=== PATIENT | female | born 1955 | race Caucasian/White ===

== ENCOUNTER 2018-09-02 07:48 | Observation (INO) | payer MEDICARE, OTHER ==
[2018-09-02] MEDS ORDERED: BABY ASPIRIN 81 MG CHEW PO ONE (08:10)
[2018-09-02] MEDS ORDERED: BABY ASPIRIN 81 MG CHEW ONE (08:13)
--- NOTE | 2018-09-02 08:14 | ERPHSYRPT ---
- History of Present Illness Time Seen by Provider: 09/02/18 08:11 Historian: patient Patient Subjective Stated Complaint: Pt states "I had a horrible migraine a couple of days ago and then I just felt terrible. Last night I started to have chest pain on the right side of my chest and it hurts to breathe, it hurts to move." Triage Nursing Assessment: Pt alert and oriented X 3, skin pwd. Pt ambulates with a slow hunched over gait. PT able to speak in clear full sentences. Pt winces every so often when she moves or breathes. Physician History: mild to mod off and on right chest pain tightness for one day, gone now, no injury,no hx OR Aspirin Treatment Today: provided by ED Allergies/Adverse Reactions: clonazepam Adverse Reaction (Mild, Verified 09/02/18 08:03) altered loc divalproex sodium [From Depakote] Adverse Reaction (Mild, Verified 09/02/18 08: 03) hair loss tizanidine Adverse Reaction (Mild, Verified 09/02/18 08:03) altered loc trazodone Adverse Reaction (Mild, Verified 09/02/18 08:03) altered loc Home Medications: Sumatriptan Succ/Naproxen Sod [Treximet 85-500 mg Tablet] 1 each PO DAILY PRN [History] Hx Tetanus, Diphtheria Vaccination/Date Given: Yes Hx Influenza Vaccination/Date Given: No Hx Pneumococcal Vaccination/Date Given: No Immunizations Up to Date: Yes - Review of Systems Constitutional: No Fever Eyes: No Eye Redness Ears, Nose, & Throat: No Nose Congestion Respiratory: Cough, Dyspnea Cardiac: Chest Pain Abdominal/Gastrointestinal: Nausea, No Abdominal Pain, No Vomiting Genitourinary Symptoms: No Dysuria Musculoskeletal: No Back Pain Skin: No Rash Neurological: No Dizziness - Past Medical History Pertinent Past Medical History: Yes Neurological History: Migraines ENT History: No Pertinent History Cardiac History: Other Respiratory History: Asthma Endocrine Medical History: No Pertinent History Musculoskeletal History: Arthritis GI Medical History: Other History: No Pertinent History Psycho-Social History: No Pertinent History Female Reproductive Disorders: No Pertinent History Other Medical History: heart murmer. rheumatic fever - Past Surgical History Past Surgical History: Yes Other Surgical History: tonsils. adnoids - Social History Smoking Status: Never smoker Exposure to second hand smoke: No Drug Use: none Patient Lives Alone: No - Female History Hx Now: No - Nursing Vital Signs Nursing Vital Signs: Initial Vital Signs Temperature 99.0 F 09/02/18 07:53 Pulse Rate 100 H 09/02/18 07:53 Respiratory Rate 22 09/02/18 07:53 Blood Pressure 130/75 09/02/18 07:53 O2 Sat by Pulse Oximetry 99 09/02/18 07:53 Pain Scale Pain Intensity 5 - Physical Exam General Appearance: no apparent distress Eye Exam: eyes nml inspection Ears, Nose, Throat Exam: moist mucous membranes Neck Exam: normal inspection Respiratory Exam: normal breath sounds Cardiovascular Exam: regular rate/rhythm Gastrointestinal/Abdomen Exam: soft, No tenderness Extremity Exam: normal inspection Neurologic Exam: alert, oriented x 3, cooperative Skin Exam: normal color, warm, dry SpO2 Interpretation: normal SpO2: 99 Oxygen Delivery: Room Air - Course Nursing assessment & vital signs reviewed: Yes EKG Interpreted by Me: Other (nsr 97 no stemi) - Radiology Exams Chest X-ray Interpretation: Discussed w/ radiologist, Infiltrates Ordered Tests: Active Orders 24 hr Category Date Time Status EKG-ER Only STAT Care 09/02/18 08:10 Active IV Insertion STAT Care 09/02/18 08:10 Active CHEST 1 VIEW (PORTABLE) Stat Exams 09/02/18 08:10 Completed BLOOD CULTURE Stat Lab 09/02/18 Ordered CBC W DIFF Stat Lab 09/02/18 08:18 Completed CMP Stat Lab 09/02/18 08:18 Completed D-DIMER QUANTITATION Stat Lab 09/02/18 08:18 Completed PROTIME WITH INR Stat Lab 09/02/18 08:18 Completed TROPONIN Q3H Lab 09/02/18 08:19 Completed TROPONIN Q3H Lab 09/02/18 11:15 Ordered TROPONIN Q3H Lab 09/02/18 14:15 Ordered TROPONIN Q3H Lab 09/02/18 17:15 Ordered TROPONIN Q3H Lab 09/02/18 20:15 Ordered Transfer Order Routine Transfer 09/02/18 Ordered Medication Summary Generic Name Dose Route Start Last Admin Trade Name Freq PRN Reason Stop Dose Admin Levofloxacin/Dextrose 750 mg in 150 mls @ 100 mls/hr 09/02/18 10:08 09/02/18 10:15 Levofloxacin 750mg/150ml D5w IV 09/02/18 11:37 150 mls/hr STAT STA 150 mls/hr Administration Discontinued Medications Generic Name Dose Route Start Last Admin Trade Name Patricia PRN Reason Stop Dose Admin Aspirin 324 mg 09/02/18 08:10 09/02/18 08:14 Baby Aspirin 81 Mg Chew PO 09/02/18 08:11 324 mg STAT ONE Administration Aspirin Confirm 09/02/18 08:13 Baby Aspirin 81 Mg Chew Administered 09/02/18 08:14 Dose 324 mg .ROUTE .STK-MED ONE Levofloxacin/Dextrose Confirm 09/02/18 10:14 Levofloxacin 750mg/150ml D5w Administered 09/02/18 10:15 Dose 750 mg in 150 mls @ ud IV .STK-MED ONE Lab/Rad Data: Laboratory Result Diagrams 09/02/18 08:18 09/02/18 08:18 Laboratory Results 09/02/18 09/02/18 09/02/18 Range/Units 08:19 08:18 08:18 WBC (4.0-10.5) K/mm3 RBC (4.1-5.4) M/mm3 Hgb (12.0-16.0) gm/dl Hct (35-47) % MCV (78-100) fl MCH (26-32) pg MCHC (32-36) g/dl RDW (11.5-14.0) % Plt Count (150-450) K/mm3 MPV (6-9.5) fl Gran % (36.0-66.0) % Eos # (Auto) (0-0.5) Absolute Lymphs (auto) (1.0-4.6) Absolute Monos (auto) (0.0-1.3) Lymphocytes % (24.0-44.0) % Monocytes % (0.0-12.0) % Eosinophils % (0.00-5.0) % Basophils % (0.0-0.4) % Absolute Granulocytes (1.4-6.9) Basophils # (0-0.4) PT 14.1 H (9.95-12.35) SECONDS INR 1.21 (0.8-3.0) D-Dimer 355 (215-500) ng/mL Sodium 138 (137-145) mmol/L Potassium 4.7 (3.5-5.1) mmol/L Chloride 101 (98-107) mmol/L Carbon Dioxide 26 (22-30) mmol/L Anion Gap 15.5 H (5-15) MEQ/L BUN 22 H (7-17) mg/dL Creatinine 0.65 (0.52-1.04) mg/dL Estimated GFR > 60.0 ML/MIN Glucose 143 H (74-106) mg/dL Calcium 10.1 (8.4-10.2) mg/dL Total Bilirubin 1.20 (0.2-1.3) mg/dL AST 29 (14-36) U/L ALT 21 (0-35) U/L Alkaline Phosphatase 77 (38-126) U/L Troponin I < 0.012 (0.000-0.034) ng/mL Serum Total Protein 8.1 (6.3-8.2) g/dL Albumin 4.6 (3.5-5.0) g/dL 18 Range/Units 08:18 WBC 19.9 H (4.0-10.5) K/mm3 RBC 5.49 H (4.1-5.4) M/mm3 Hgb 13.6 (12.0-16.0) gm/dl Hct 40.9 (35-47) % MCV 74.5 L (78-100) fl MCH 24.7 L (26-32) pg MCHC 33.3 (32-36) g/dl RDW 16.7 H (11.5-14.0) % Plt Count 253 (150-450) K/mm3 MPV 9.9 H (6-9.5) fl Gran % 88.1 H (36.0-66.0) % Eos # (Auto) 0 (0-0.5) Absolute Lymphs (auto) 0.95 L (1.0-4.6) Absolute Monos (auto) 1.39 H (0.0-1.3) Lymphocytes % 4.8 L (24.0-44.0) % Monocytes % 7.0 (0.0-12.0) % Eosinophils % 0.0 (0.00-5.0) % Basophils % 0.1 (0.0-0.4) % Absolute Granulocytes 17.55 H (1.4-6.9) Basophils # 0.02 (0-0.4) PT (9.95-12.35) SECONDS INR (0.8-3.0) D-Dimer (215-500) ng/mL Sodium (137-145) mmol/L Potassium (3.5-5.1) mmol/L Chloride (98-107) mmol/L Carbon Dioxide (22-30) mmol/L Anion Gap (5-15) MEQ/L BUN (7-17) mg/dL Creatinine (0.52-1.04) mg/dL Estimated GFR ML/MIN Glucose (74-106) mg/dL Calcium (8.4-10.2) mg/dL Total Bilirubin (0.2-1.3) mg/dL AST (14-36) U/L ALT (0-35) U/L Alkaline Phosphatase (38-126) U/L Troponin I (0.000-0.034) ng/mL Serum Total Protein (6.3-8.2) g/dL Albumin (3.5-5.0) g/dL - Progress Progress: unchanged Air Movement: good Progress Note: 09/02/18 10:28 Dr Schneider asked to admit pt to Dr Calhoun Blood Culture(s) Obtained: Yes Antibiotics given: Yes Discussed with : Lj Will see patient in: hospital (observation) Counseled pt/family regarding: lab results, diagnosis, rad results - Departure Time of Disposition: 10:29 Departure Disposition: Observation Clinical Impression: Pneumonia Qualifiers: Pneumonia type: due to unspecified organism Laterality: right Lung location: unspecified part of lung Qualified Code(s): J18.9 - Pneumonia, unspecified organism Condition: Stable Critical Care Time: No Referrals: PONCHO SCHNEIDER [Primary Care Provider] -
[2018-09-02 08:23] LABS: BASOPHIL % 0.1 % (0.0-0.4); Basophil (Absolute #) 0.02 (0-0.4); Eosinophil (Absolute #) 0 (0-0.5); Granulocyte Absolute (ANC) 17.55 (1.4-6.9); Granulocytes % 88.1 % (36.0-66.0); Hematocrit 40.9 % (35-47); Hemoglobin 13.6 gm/dl (12.0-16.0); Lymphocyte (Absolute #) 0.95 (1.0-4.6); Lymphocytes % 4.8 % (24.0-44.0); Mean Cell Volume 74.5 fl (78-100); Mean Corpuscular Hgb Concent. 33.3 g/dl (32-36); Mean Platelet Volume 9.9 fl (6-9.5); Monocyte (Absolute #) 1.39 (0.0-1.3); Platelet Count 253 K/mm3 (150-450); Red Blood Count 5.49 M/mm3 (4.1-5.4); Red Cell Distribution Width 16.7 % (11.5-14.0); White Blood Count 19.9 K/mm3 (4.0-10.5)
[2018-09-02 08:26] LABS: Mean Corpuscular Hemoglobin 24.7 pg (26-32)
[2018-09-02 08:38] LABS: INR 1.21 (0.8-3.0)
[2018-09-02 08:47] LABS: ALBUMIN 4.6 g/dL (3.5-5.0); ALKALINE PHOSPHATASE 77 U/L (38-126); ANION GAP 15.5 MEQ/L (5-15); BLOOD UREA NITROGEN 22 mg/dL (7-17); CHLORIDE 101 mmol/L (98-107); Calcium 10.1 mg/dL (8.4-10.2); Carbon Dioxide 26 mmol/L (22-30); Creatinine 1 0.65 mg/dL (0.52-1.04); Glucose 143 mg/dL (74-106); Potassium 4.7 mmol/L (3.5-5.1); SGOT/AST 29 U/L (14-36); SGPT/ALT 21 U/L (0-35); SODIUM 138 mmol/L (137-145); Total Protein 8.1 g/dL (6.3-8.2)
[2018-09-02] MEDS ORDERED: LEVOFLOXACIN 750MG/150ML D5W 750 MG/150 ML BAG IV STA (10:08)
--- NOTE | 2018-09-02 10:11 | XRAY ---
Indication: Chest pain. Comparison: None Portable chest hyperinflated with subtle patchy infiltrate in the right upper and right lower lung without consolidation or large effusion. Remaining heart and left lung normal. Bony thorax intact.
[2018-09-02] MEDS ORDERED: LEVOFLOXACIN 750MG/150ML D5W 750 MG/150 ML BAG IV ONE (10:14)
[2018-09-02] MEDS ORDERED: DUONEB 0.5-3 MG/3 ml Neb IH PRN (10:40)
[2018-09-02] MEDS ORDERED: TYLENOL 325 MG PO PRN (10:40)
[2018-09-02] MEDS: Sodium Chloride 0.9% 1000 ML 1,000 ML IV SCH ×2 (11:46→22:53)
[2018-09-02] MEDS ORDERED: NAPROXEN SOD PO PRN (13:35)
[2018-09-02] MEDS ORDERED: SUMATRIPTAN SUCC PO PRN (13:35)
[2018-09-02] MEDS ORDERED: MEDICATION INTERVENTION MC SCH (13:45)
[2018-09-02] MEDS ORDERED: ENOXAPARIN SODIUM SQ ONE (19:15)
[2018-09-03 06:03] LABS: BASOPHIL % 0.2 % (0.0-0.4); Basophil (Absolute #) 0.02 (0-0.4); Eosinophil % 1.3 % (0.00-5.0); Eosinophil (Absolute #) 0.11 (0-0.5); Granulocyte Absolute (ANC) 5.31 (1.4-6.9); Granulocytes % 65.1 % (36.0-66.0); Hematocrit 32.5 % (35-47); Hemoglobin 10.4 gm/dl (12.0-16.0); Lymphocyte (Absolute #) 2.02 (1.0-4.6); Lymphocytes % 24.8 % (24.0-44.0); Mean Cell Volume 76.5 fl (78-100); Mean Platelet Volume 10.2 fl (6-9.5); Monocytes % 8.6 % (0.0-12.0); Platelet Count 201 K/mm3 (150-450); Red Blood Count 4.25 M/mm3 (4.1-5.4); Red Cell Distribution Width 16.2 % (11.5-14.0); White Blood Count 8.2 K/mm3 (4.0-10.5)
[2018-09-03 06:06] LABS: Mean Corpuscular Hemoglobin 24.4 pg (26-32)
[2018-09-03 06:58] VITALS: BP 113/55; PULSE 73
[2018-09-03 07:05] VITALS: O2SAT 98
[2018-09-03] MEDS: Sodium Chloride 0.9% 1000 ML 1,000 ML IV SCH (07:46)
--- NOTE | 2018-09-03 08:55 | PCM.SSS ---
History of Present Illness - Chief Complaint Chief Complaint: pneumonia History of Present Illness: is a 63 year old female pt of Dr. Poncho Schneider who was admitted through the ER last night with RUL and RLL pneumonia. She had a migraine 2d ago and was not tolerating po well; she had a pain in her R ribs radiating up toward R axilla so she came to ER. She had no cough; had an episode of PNA 26 years ago with no cough. No fever. She is feeling much better today. Her WBC were 19.9 in the ER; this morning down to 8.2. The pain in her side is still present but much improved. - Review of Systems Cardiac: Chest Pain Abdominal/Gastrointestinal: Appetite Changes Neurological: Headache Psychological: No Anxiety, No Depression, No Suicidal Ideations All Other Systems: Reviewed and Negative Medications & Allergies Home Medications: Home Medication List Sumatriptan Succ/Naproxen Sod [Treximet 85-500 mg Tablet] 1 each PO DAILY PRN [History Confirmed 09/02/18] Levofloxacin [Levaquin] 500 mg PO DAILY #9 tablet 09/03/18 [Rx] Allergies/Adverse Reactions: Allergies Allergy/AdvReac Type Severity Reaction Status Date / Time clonazepam AdvReac Mild altered loc Verified 09/02/18 08:03 divalproex sodium AdvReac Mild hair loss Verified 09/02/18 08:03 [From Depakote] tizanidine AdvReac Mild altered loc Verified 09/02/18 08:03 trazodone AdvReac Mild altered loc Verified 09/02/18 08:03 - Past Medical History Past Medical History: Yes Neurological History: Migraines ENT History: No Pertinent History Cardiac History: Other Respiratory History: Asthma, Pneumonia Endocrine Medical History: No Pertinent History Musculoskelatal History: Arthritis GI Medical History: Other History: No Pertinent History Pyscho-Social History: No Pertinent History Reproductive Disorders: No Pertinent History Comment: heart murmer. anemia. rheumatic fever - Female History Are you now?: No - Past Surgical History Past Surgical History: Yes Neuro Surgical History: No Pertinent History Cardiac History: No Pertinent History Respiratory Surgery: No Pertinent History GI Surgical History: No Pertinent History Genitourinary Surgical Hx: No Pertinent History Musculskeletal Surgical Hx: No Pertinent History Female Surgical History: No Pertinent History Other Surgical History: tonsils. adnoids - Social History Smoking Status: Never smoker Exposure to second hand smoke: No Alcohol: None Drug Use: none - Physical Exam Vital Signs: Vital Signs - 24 hr Temp Pulse Resp BP Pulse Ox 09/03/18 07:04 98 09/03/18 06:57 97.7 F 73 20 113/55 99 09/03/18 05:57 18 09/03/18 04:00 97.6 F 69 18 101/53 96 09/03/18 02:00 16 09/03/18 00:17 97.8 F 79 16 107/51 98 09/02/18 22:00 18 09/02/18 19:56 81 18 94 L 09/02/18 19:50 98.5 F 76 16 97/53 98 09/02/18 15:44 98 F 89 20 109/53 97 09/02/18 11:40 96 H 16 98 09/02/18 10:53 20 09/02/18 10:40 98.4 F 92 H 20 112/56 98 09/02/18 10:30 99 09/02/18 10:00 79 23 112/61 97 09/02/18 09:06 99.0 F 89 20 108/57 97 General Appearance: no apparent distress, alert Neurologic Exam: oriented x 3, cooperative Eye Exam: eyes nml inspection Ears, Nose, Throat Exam: moist mucous membranes Neck Exam: normal inspection, non-tender, No lymphadenopathy Respiratory Exam: normal breath sounds, lungs clear, other (chest nttp on R), No crackles/rales, No rhonchi, No wheezing Cardiovascular Exam: regular rate/rhythm, normal heart sounds, No murmur Gastrointestinal/Abdomen Exam: soft, normal bowel sounds, No tenderness Extremity Exam: normal inspection, No pedal edema, No swelling Results - Labs Lab/Micro Results: Lab Results-Last 24 Hours 09/02/18 09/02/18 09/02/18 Range/Units 08:18 08:18 08:19 WBC (4.0-10.5) K/mm3 RBC (4.1-5.4) M/mm3 Hgb (12.0-16.0) gm/dl Hct (35-47) % MCV (78-100) fl MCH (26-32) pg MCHC (32-36) g/dl RDW (11.5-14.0) % Plt Count (150-450) K/mm3 MPV (6-9.5) fl Gran % (36.0-66.0) % Eos # (Auto) (0-0.5) Absolute Lymphs (auto) (1.0-4.6) Absolute Monos (auto) (0.0-1.3) Lymphocytes % (24.0-44.0) % Monocytes % (0.0-12.0) % Eosinophils % (0.00-5.0) % Basophils % (0.0-0.4) % Absolute Granulocytes (1.4-6.9) Basophils # (0-0.4) PT 14.1 H (9.95-12.35) SECONDS INR 1.21 (0.8-3.0) D-Dimer 355 (215-500) ng/mL Sodium 138 (137-145) mmol/L Potassium 4.7 (3.5-5.1) mmol/L Chloride 101 (98-107) mmol/L Carbon Dioxide 26 (22-30) mmol/L Anion Gap 15.5 H (5-15) MEQ/L BUN 22 H (7-17) mg/dL Creatinine 0.65 (0.52-1.04) mg/dL Estimated GFR > 60.0 ML/MIN Glucose 143 H (74-106) mg/dL Calcium 10.1 (8.4-10.2) mg/dL Total Bilirubin 1.20 (0.2-1.3) mg/dL AST 29 (14-36) U/L ALT 21 (0-35) U/L Alkaline Phosphatase 77 (38-126) U/L Troponin I < 0.012 (0.000-0.034) ng/mL Serum Total Protein 8.1 (6.3-8.2) g/dL Albumin 4.6 (3.5-5.0) g/dL 09/02/18 09/02/18 09/02/18 Range/Units 11:09 14:08 17:13 WBC (4.0-10.5) K/mm3 RBC (4.1-5.4) M/mm3 Hgb (12.0-16.0) gm/dl Hct (35-47) % MCV (78-100) fl MCH (26-32) pg MCHC (32-36) g/dl RDW (11.5-14.0) % Plt Count (150-450) K/mm3 MPV (6-9.5) fl Gran % (36.0-66.0) % Eos # (Auto) (0-0.5) Absolute Lymphs (auto) (1.0-4.6) Absolute Monos (auto) (0.0-1.3) Lymphocytes % (24.0-44.0) % Monocytes % (0.0-12.0) % Eosinophils % (0.00-5.0) % Basophils % (0.0-0.4) % Absolute Granulocytes (1.4-6.9) Basophils # (0-0.4) PT (9.95-12.35) SECONDS INR (0.8-3.0) D-Dimer (215-500) ng/mL Sodium (137-145) mmol/L Potassium (3.5-5.1) mmol/L Chloride (98-107) mmol/L Carbon Dioxide (22-30) mmol/L Anion Gap (5-15) MEQ/L BUN (7-17) mg/dL Creatinine (0.52-1.04) mg/dL Estimated GFR ML/MIN Glucose (74-106) mg/dL Calcium (8.4-10.2) mg/dL Total Bilirubin (0.2-1.3) mg/dL AST (14-36) U/L ALT (0-35) U/L Alkaline Phosphatase (38-126) U/L Troponin I < 0.012 < 0.012 < 0.012 (0.000-0.034) ng/mL Serum Total Protein (6.3-8.2) g/dL Albumin (3.5-5.0) g/dL 09/02/18 09/03/18 Range/Units 20:15 05:22 WBC 8.2 (4.0-10.5) K/mm3 RBC 4.25 (4.1-5.4) M/mm3 Hgb 10.4 L D (12.0-16.0) gm/dl Hct 32.5 L (35-47) % MCV 76.5 L (78-100) fl MCH 24.4 L (26-32) pg MCHC 32.0 D (32-36) g/dl RDW 16.2 H (11.5-14.0) % Plt Count 201 (150-450) K/mm3 MPV 10.2 H (6-9.5) fl Gran % 65.1 (36.0-66.0) % Eos # (Auto) 0.11 (0-0.5) Absolute Lymphs (auto) 2.02 (1.0-4.6) Absolute Monos (auto) 0.70 (0.0-1.3) Lymphocytes % 24.8 (24.0-44.0) % Monocytes % 8.6 (0.0-12.0) % Eosinophils % 1.3 (0.00-5.0) % Basophils % 0.2 (0.0-0.4) % Absolute Granulocytes 5.31 (1.4-6.9) Basophils # 0.02 (0-0.4) PT (9.95-12.35) SECONDS INR (0.8-3.0) D-Dimer (215-500) ng/mL Sodium (137-145) mmol/L Potassium (3.5-5.1) mmol/L Chloride (98-107) mmol/L Carbon Dioxide (22-30) mmol/L Anion Gap (5-15) MEQ/L BUN (7-17) mg/dL Creatinine (0.52-1.04) mg/dL Estimated GFR ML/MIN Glucose (74-106) mg/dL Calcium (8.4-10.2) mg/dL Total Bilirubin (0.2-1.3) mg/dL AST (14-36) U/L ALT (0-35) U/L Alkaline Phosphatase (38-126) U/L Troponin I < 0.012 (0.000-0.034) ng/mL Serum Total Protein (6.3-8.2) g/dL Albumin (3.5-5.0) g/dL Microbiology 09/02/18 11:09 Blood Culture - Preliminary Blood NO GROWTH TO DATE 09/02/18 08:00 Blood Culture - Preliminary Blood NO GROWTH TO DATE - Radiology Impressions Radiology Exams & Impressions: Radiology Procedures Category Date Time Status CHEST 1 VIEW (PORTABLE) Stat Exams 09/02/18 08:10 Completed - Other Procedures and Tests Respiratory Therapy 09/02/18 11:40 Respiratory Therapy Assessment ONCE Assessment/Plan (1) Pneumonia Current Visit: Yes Status: Acute Onset Date: ~09/02/18 Qualifiers: Pneumonia type: due to unspecified organism Laterality: right Lung location: unspecified part of lung Qualified Code(s): J18.9 - Pneumonia, unspecified organism Assessment & Plan: Much improved on IV levaquin. Will d/c to home on po levaquin. Discussed warning s/sx when to call DrGino/head to ER, including fever, increased pain, not feeling well. Code(s): J18.9 - PNEUMONIA, UNSPECIFIED ORGANISM (2) Chest pain Current Visit: Yes Status: Acute Onset Date: ~09/02/18 Qualifiers: Chest pain type: unspecified Qualified Code(s): R07.9 - Chest pain, unspecified Assessment & Plan: TN ruled out. Much improved (due to pna). Code(s): R07.9 - CHEST PAIN, UNSPECIFIED Hospital Summary - Hospital Course Hospital Course: is a 63 year old female pt of Dr. Poncho Schneider who was admitted through the ER last night with RUL and RLL pneumonia. She had a migraine 2d ago and was not tolerating po well; she had a pain in her R ribs radiating up toward R axilla so she came to ER. She had no cough; had an episode of PNA 26 years ago with no cough. No fever. She is feeling much better today. Troponins neg x 5. Her WBC were 19.9 in the ER; this morning down to 8.2. The pain in her side is still present but much improved. She will be discharged to home today on po levaquin, 500mg daily x 9 more days. She was warned to watch for musculoskeletal pain, particularly around the Achilles tendon, and stop the med and contact MD if present. - Vitals & Intake/Output Vital Signs: Vital Signs Temperature 97.7 F 09/03/18 06:57 Pulse Rate 73 09/03/18 06:57 Respiratory Rate 20 09/03/18 06:57 Blood Pressure 113/55 09/03/18 06:57 O2 Sat by Pulse Oximetry 98 09/03/18 07:04 Intake & Output: Intake & Output 08/31/18 09/01/18 09/02/18 09/03/18 11:59 11:59 11:59 11:59 Intake Total 2298 Output Total 950 Balance 1348 Weight 45.4 kg - Lab Result Diagrams: 09/03/18 05:22 09/02/18 08:18 Lab Results-Last 24 Hrs: Lab Results-Last 24 Hours 09/02/18 09/02/18 09/02/18 Range/Units 08:18 08:18 08:19 WBC (4.0-10.5) K/mm3 RBC (4.1-5.4) M/mm3 Hgb (12.0-16.0) gm/dl Hct (35-47) % MCV (78-100) fl MCH (26-32) pg MCHC (32-36) g/dl RDW (11.5-14.0) % Plt Count (150-450) K/mm3 MPV (6-9.5) fl Gran % (36.0-66.0) % Eos # (Auto) (0-0.5) Absolute Lymphs (auto) (1.0-4.6) Absolute Monos (auto) (0.0-1.3) Lymphocytes % (24.0-44.0) % Monocytes % (0.0-12.0) % Eosinophils % (0.00-5.0) % Basophils % (0.0-0.4) % Absolute Granulocytes (1.4-6.9) Basophils # (0-0.4) PT 14.1 H (9.95-12.35) SECONDS INR 1.21 (0.8-3.0) D-Dimer 355 (215-500) ng/mL Sodium 138 (137-145) mmol/L Potassium 4.7 (3.5-5.1) mmol/L Chloride 101 (98-107) mmol/L Carbon Dioxide 26 (22-30) mmol/L Anion Gap 15.5 H (5-15) MEQ/L BUN 22 H (7-17) mg/dL Creatinine 0.65 (0.52-1.04) mg/dL Estimated GFR > 60.0 ML/MIN Glucose 143 H (74-106) mg/dL Calcium 10.1 (8.4-10.2) mg/dL Total Bilirubin 1.20 (0.2-1.3) mg/dL AST 29 (14-36) U/L ALT 21 (0-35) U/L Alkaline Phosphatase 77 (38-126) U/L Troponin I < 0.012 (0.000-0.034) ng/mL Serum Total Protein 8.1 (6.3-8.2) g/dL Albumin 4.6 (3.5-5.0) g/dL 09/02/18 09/02/18 09/02/18 Range/Units 11:09 14:08 17:13 WBC (4.0-10.5) K/mm3 RBC (4.1-5.4) M/mm3 Hgb (12.0-16.0) gm/dl Hct (35-47) % MCV (78-100) fl MCH (26-32) pg MCHC (32-36) g/dl RDW (11.5-14.0) % Plt Count (150-450) K/mm3 MPV (6-9.5) fl Gran % (36.0-66.0) % Eos # (Auto) (0-0.5) Absolute Lymphs (auto) (1.0-4.6) Absolute Monos (auto) (0.0-1.3) Lymphocytes % (24.0-44.0) % Monocytes % (0.0-12.0) % Eosinophils % (0.00-5.0) % Basophils % (0.0-0.4) % Absolute Granulocytes (1.4-6.9) Basophils # (0-0.4) PT (9.95-12.35) SECONDS INR (0.8-3.0) D-Dimer (215-500) ng/mL Sodium (137-145) mmol/L Potassium (3.5-5.1) mmol/L Chloride (98-107) mmol/L Carbon Dioxide (22-30) mmol/L Anion Gap (5-15) MEQ/L BUN (7-17) mg/dL Creatinine (0.52-1.04) mg/dL Estimated GFR ML/MIN Glucose (74-106) mg/dL Calcium (8.4-10.2) mg/dL Total Bilirubin (0.2-1.3) mg/dL AST (14-36) U/L ALT (0-35) U/L Alkaline Phosphatase (38-126) U/L Troponin I < 0.012 < 0.012 < 0.012 (0.000-0.034) ng/mL Serum Total Protein (6.3-8.2) g/dL Albumin (3.5-5.0) g/dL 09/02/18 09/03/18 Range/Units 20:15 05:22 WBC 8.2 (4.0-10.5) K/mm3 RBC 4.25 (4.1-5.4) M/mm3 Hgb 10.4 L D (12.0-16.0) gm/dl Hct 32.5 L (35-47) % MCV 76.5 L (78-100) fl MCH 24.4 L (26-32) pg MCHC 32.0 D (32-36) g/dl RDW 16.2 H (11.5-14.0) % Plt Count 201 (150-450) K/mm3 MPV 10.2 H (6-9.5) fl Gran % 65.1 (36.0-66.0) % Eos # (Auto) 0.11 (0-0.5) Absolute Lymphs (auto) 2.02 (1.0-4.6) Absolute Monos (auto) 0.70 (0.0-1.3) Lymphocytes % 24.8 (24.0-44.0) % Monocytes % 8.6 (0.0-12.0) % Eosinophils % 1.3 (0.00-5.0) % Basophils % 0.2 (0.0-0.4) % Absolute Granulocytes 5.31 (1.4-6.9) Basophils # 0.02 (0-0.4) PT (9.95-12.35) SECONDS INR (0.8-3.0) D-Dimer (215-500) ng/mL Sodium (137-145) mmol/L Potassium (3.5-5.1) mmol/L Chloride (98-107) mmol/L Carbon Dioxide (22-30) mmol/L Anion Gap (5-15) MEQ/L BUN (7-17) mg/dL Creatinine (0.52-1.04) mg/dL Estimated GFR ML/MIN Glucose (74-106) mg/dL Calcium (8.4-10.2) mg/dL Total Bilirubin (0.2-1.3) mg/dL AST (14-36) U/L ALT (0-35) U/L Alkaline Phosphatase (38-126) U/L Troponin I < 0.012 (0.000-0.034) ng/mL Serum Total Protein (6.3-8.2) g/dL Albumin (3.5-5.0) g/dL Micro Results-Entire Visit: Microbiology 09/02/18 11:09 Blood Culture - Preliminary Blood NO GROWTH TO DATE 09/02/18 08:00 Blood Culture - Preliminary Blood NO GROWTH TO DATE - Radiology Exams Ordered Rad Exams-Entire Visit: Radiology Procedures Category Date Time Status CHEST 1 VIEW (PORTABLE) Stat Exams 09/02/18 08:10 Completed - Procedures and Test Procedures and Tests throughout Hospitalization: Therapy Orders & Screens 09/02/18 11:40 Respiratory Therapy Assessment ONCE Comment: Diagnosis: pneumonia - Discharge Disposition: Home, Self-Care Condition: Good Prescriptions: New Levofloxacin [Levaquin] 500 mg PO DAILY #9 tablet Continue Sumatriptan Succ/Naproxen Sod [Treximet 85-500 mg Tablet] 1 each PO DAILY PRN PRN Reason: pain Follow up with: PONCHO SCHNEIDER [Primary Care Provider] - 1 Week
[2018-09-03] MEDS ORDERED: LEVOFLOXACIN 750MG/150ML D5W 750 MG/150 ML BAG IV SCH (10:00)
[2018-09-03] MEDS ORDERED: ENOXAPARIN SODIUM SQ SCH (22:00)
== END 2018-09-03 09:27 | disposition home or self-care (01) ==
LOC: ED 07:48 → MED SURG 10:38
PROVIDERS: ADMIT Family Medicine; ATTEND Family Medicine
DX: J18.9 Pneumonia, unspecified organism (principal); R07.9 Chest pain, unspecified
CPT/HCPCS: 36000; 36415; 71045; 80053; 84484; 85025; 85379; 85610; 87040; 93005; 93268; 94760; 94762; 96365; 96374; 99285; G0378; J1650; J1956; A9270-GY

== ENCOUNTER 2023-07-22 11:43 | Observation (INO) | payer MEDICARE, OTHER ==
[2023-07-22 13:48] LABS: Absolute Neutrophil Ct (ANC) 9.78 x10^3/uL (1.4-6.9); BASOPHIL % 0.5 % (0.0-0.4); Basophil (Absolute #) 0.06 x10^3/uL (0-0.4); Eosinophil % 0.3 % (0.00-5.0); Eosinophil (Absolute #) 0.04 x10^3/uL (0-0.5); Hematocrit 41.2 % (35-47); Hemoglobin 13.2 g/dL (12.0-16.0); IMMATURE GRAN # 0.03 x10^3u/L (0.00-0.03); IMMATURE GRAN % 0.3 % (0.00-0.4); Lymphocyte (Absolute #) 1.64 x10^3/uL (1.0-4.6); Lymphocytes % 13.7 % (24.0-44.0); Mean Cell Volume 74.4 fL (78-100); Mean Corpuscular Hemoglobin 23.8 pg (26-32); Mean Platelet Volume 9.7 fL (7.5-11.0); Monocyte (Absolute #) 0.38 x10^3/uL (0.0-1.3); Monocytes % 3.2 % (0.0-12.0); Platelet Count 384 x10^3/uL (150-450); Red Blood Count 5.54 x10^6/uL (4.1-5.4); Red Cell Distribution Width 16.1 % (11.5-14.0); White Blood Count 11.9 x10^3/uL (4.0-10.5)
[2023-07-22 14:02] LABS: ALBUMIN 4.4 g/dL (3.5-5.0); ALKALINE PHOSPHATASE 79 U/L (38-126); AMYLASE 82 U/L (30-110); ANION GAP 17.7 MEQ/L (5-15); BLOOD UREA NITROGEN 26 mg/dL (7-17); CHLORIDE 104 mmol/L (98-107); Calcium 9.1 mg/dL (8.4-10.2); Carbon Dioxide 23 mmol/L (22-30); Creatinine 1 0.58 mg/dL (0.52-1.04); EST GLOMERULAR FILTRATION RATE > 60.0 ML/MIN; Glucose 132 mg/dL (74-106); LIPASE 91 U/L (23-300); Potassium 3.7 mmol/L (3.5-5.1); SGOT/AST 35 U/L (14-36); SGPT/ALT 26 U/L (0-35); SODIUM 142 mmol/L (137-145); Total Protein 7.1 g/dL (6.3-8.2)
--- NOTE | 2023-07-22 14:23 | ERPHSYRPT ---
- History of Present Illness Historian: patient, other (Spouse) Exam Limitations: no limitations Patient Subjective Stated Complaint: Pt c/o of low lower quadrant pain that feels like cramping since this morning, pt had a similar episode a couple of weeks ago that lasted 1.5 days and then went away Triage Nursing Assessment: Pt brought to the ER by her , vitals wnl, rates pain as 5/10, pt is drawn up with her knees to her chest, hx of menopause, has ovaries, has appendix, pulses normal, denies N&V, skin n/w/d, pt walked to the room bent over and guarding abdomen Physician History: 67 yo WF w periumbilical pain since 9AM. Pain is 6/10, cramping, and nothing makes better/worse. It has been up to an 8/10. She has nausea wo vomiting/ diarrhea/dysuria/hematuria/melena/hematochezia/fever/cough/coryza. Pt has had no abdominal surgeries. Timing/Duration: other (9AM) Quality: cramping Abdominal Pain Onset Location: periumbilical Pain Radiation: no radiation Severity of Pain-Max: severe Severity of Pain-Current: moderate Modifying Factors: Improves With: nothing Associated Symptoms: denies symptoms, nausea Previous symptoms: same symptoms as today (3 wks ago) Allergies/Adverse Reactions: levofloxacin [From Levaquin] Allergy (Verified 07/22/23 13:05) clonazepam Adverse Reaction (Mild, Verified 07/22/23 13:05) altered loc divalproex sodium [From Depakote] Adverse Reaction (Mild, Verified 07/22/23 13:05) hair loss tizanidine Adverse Reaction (Mild, Verified 07/22/23 13:05) altered loc trazodone Adverse Reaction (Mild, Verified 07/22/23 13:05) altered loc Home Medications: Sumatriptan Succinate [Imitrex] 100 mg PO UD PRN 07/22/23 [History] Hx Tetanus, Diphtheria Vaccination/Date Given: Yes Hx Influenza Vaccination/Date Given: No Hx Pneumococcal Vaccination/Date Given: No Travel Risk - International Travel Have you traveled outside of the country in past 3 weeks: No - Coronavirus Screening Are you exhibiting any of the following symptoms?: No Close contact with a COVID-19 positive Pt in past 14-21 Days: No - Vaccine Status Have you recieved a Covid-19 vaccination: Yes [employer]: Moderna - Vaccination Dates Date of 2cond Vaccination (if applicable): n/a - Review of Systems Constitutional: No Symptoms Eyes: No Symptoms Ears, Nose, & Throat: No Symptoms Respiratory: No Symptoms Cardiac: No Symptoms Abdominal/Gastrointestinal: No Symptoms, Abdominal Pain, Nausea Genitourinary Symptoms: No Symptoms Musculoskeletal: No Symptoms Skin: No Symptoms Neurological: No Symptoms Psychological: No Symptoms Endocrine: No Symptoms Hematologic/Lymphatic: No Symptoms Immunological/Allergic: No Symptoms - Past Medical History Pertinent Past Medical History: Yes Neurological History: Migraines ENT History: No Pertinent History Cardiac History: Other Respiratory History: Asthma, Pneumonia Endocrine Medical History: No Pertinent History Musculoskeletal History: Arthritis GI Medical History: Other History: No Pertinent History Psycho-Social History: No Pertinent History Female Reproductive Disorders: No Pertinent History Other Medical History: HX RHEUMATIC FEVER - RESIDUAL HEART MURMUR. 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 - Past Surgical History Past Surgical History: Yes Neuro Surgical History: No Pertinent History Cardiac: No Pertinent History Respiratory: No Pertinent History Gastrointestinal: No Pertinent History Genitourinary: No Pertinent History Musculoskeletal: No Pertinent History Female Surgical History: No Pertinent History Other Surgical History: . - Social History Smoking Status: Never smoker Exposure to second hand smoke: No Drug Use: none Patient Lives Alone: No - Nursing Vital Signs Nursing Vital Signs: Initial Vital Signs Temperature 97.6 F 07/22/23 12:55 Pulse Rate 78 07/22/23 12:55 Blood Pressure 129/67 07/22/23 12:55 O2 Sat by Pulse Oximetry 98 07/22/23 12:55 Pain Scale Pain Intensity 7 WNL - Physical Exam General Appearance: no apparent distress (In pain) Eye Exam: PERRL/EOMI, eyes nml inspection Ears, Nose, Throat Exam: normal ENT inspection, TMs normal, pharynx normal, moist mucous membranes Neck Exam: normal inspection, non-tender, supple, full range of motion, No meningismus, No mass, No Brudzinski, No Kernig's Respiratory Exam: normal breath sounds, lungs clear, airway intact Cardiovascular Exam: regular rate/rhythm, normal heart sounds, normal peripheral pulses, capillary refill <2 sec, No murmur Gastrointestinal/Abdomen Exam: soft, normal bowel sounds, tenderness (Mild periumbilical TTP wo guarding or rebound) Extremity Exam: normal inspection, normal range of motion Neurologic Exam: alert, oriented x 3, cooperative, 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, normal mood/affect, nml cerebellar function, nml station & gait, sensation nml Skin Exam: normal color, warm, dry Lymphatic Exam: No adenopathy SpO2 Interpretation: normal SpO2: 98 O2 Delivery: Room Air - Course Nursing assessment & vital signs reviewed: Yes - CT Exams Abdomen/Pelvis CT Interpretation: Discussed w/radiologist (Enteritis) Ordered Tests: Active Orders 24 hr Category Date Time Status Bedrest with BRP/BSC ROUTINE Activity 07/22/23 19:27 Active Call Admit Doctor for Orders ON ADMISSION Care 07/22/23 19:26 Active Code Status Order ROUTINE Care 07/22/23 19:[address] in Observation ROUTINE Care 07/22/23 19:26 Active NPO Diet 07/22/23 19:27 Active ABDOMEN AND PELVIS W/0 CONTRAS [CT] Stat Exams 07/22/23 13:17 Completed AMYLASE Stat Lab 07/22/23 13:25 Completed CBC W DIFF Stat Lab 07/22/23 13:16 Completed CMP Stat Lab 07/22/23 13:25 Completed LIPASE Stat Lab 07/22/23 13:25 Completed Lactic Acid Stat Lab 07/22/23 16:25 Completed TROPONIN Q4H Lab 07/22/23 13:30 Completed TROPONIN Q4H Lab 07/22/23 17:26 Completed TROPONIN Q4H Lab 07/22/23 21:30 Ordered UA W/RFX UR CULTURE Stat Lab 07/22/23 14:38 Completed Transfer Order Routine Transfer 07/22/23 Ordered Medication Summary Discontinued Medications Generic Name Dose Route Start Last Admin Trade Name Freq PRN Reason Stop Dose Admin Fentanyl Citrate 25 mcg 07/22/23 16:10 07/22/23 16:29 Fentanyl Citrate 100 Mcg/2 Ml* Vial IV 07/22/23 16:11 25 mcg STAT ONE Administration Fentanyl Citrate Confirm 07/22/23 16:27 Fentanyl Citrate 100 Mcg/2 Ml* Vial Administered 07/22/23 16:28 Dose 100 mcg .ROUTE .STK-MED ONE Hydromorphone HCl 0.5 mg 07/22/23 17:36 07/22/23 17:45 Hydromorphone 1 Mg/1ml Inj IV 07/22/23 17:37 0.5 mg STAT ONE Administration Hydromorphone HCl Confirm 07/22/23 17:44 Hydromorphone 1 Mg/1ml Inj Administered 07/22/23 17:45 Dose 1 mg .ROUTE .STK-MED ONE Sodium Chloride 1,000 mls @ 999 mls/hr 07/22/23 16:10 07/22/23 17:37 Sodium Chloride 0.9% 1000 Ml IV 07/22/23 17:10 Infused .Q1H1M STA Infusion Sodium Chloride Confirm 07/22/23 16:27 Sodium Chloride 0.9% 1000 Ml Administered 07/22/23 16:28 Dose 1,000 mls @ ud .ROUTE .STK-MED ONE Ondansetron HCl 4 mg 07/22/23 16:11 07/22/23 16:29 Ondansetron Hcl 4 Mg/2 Ml Vial IV 07/22/23 16:12 4 mg STAT ONE Administration Ondansetron HCl Confirm 07/22/23 16:26 Ondansetron Hcl 4 Mg/2 Ml Vial Administered 07/22/23 16:27 Dose 4 mg .ROUTE .STK-MED ONE Ondansetron HCl 4 mg 07/22/23 18:04 07/22/23 18:11 Ondansetron Hcl 4 Mg/2 Ml Vial IV 07/22/23 18:05 4 mg STAT ONE Administration Ondansetron HCl Confirm 07/22/23 18:10 Ondansetron Hcl 4 Mg/2 Ml Vial Administered 07/22/23 18:11 Dose 4 mg .ROUTE .STK-MED ONE Prochlorperazine Edisylate 5 mg 07/22/23 19:04 07/22/23 19:09 Prochlorperazine Edisylate 10 Mg/2 Ml Vial IV 07/22/23 19:05 5 mg STAT ONE Administration Prochlorperazine Edisylate Confirm 07/22/23 19:07 Prochlorperazine Edisylate 10 Mg/2 Ml Vial Administered 07/22/23 19:08 Dose 10 mg .ROUTE .STK-MED ONE Lab/Rad Data: Laboratory Result Diagrams 07/22/23 13:16 07/22/23 13:25 Laboratory Results 07/22/23 07/22/23 07/22/23 Range/Units Unknown 17:26 16:25 WBC (4.0-10.5) x10^3/uL RBC (4.1-5.4) x10^6/uL Hgb (12.0-16.0) g/dL Hct (35-47) % MCV (78-100) fL MCH (26-32) pg MCHC (32-36) g/dL RDW (11.5-14.0) % Plt Count (150-450) x10^3/uL MPV (7.5-11.0) fL Gran % (36.0-66.0) % Immature Gran % (Auto) (0.00-0.4) % Nucleat RBC Rel Count (0.00-0.1) % Eos # (Auto) (0-0.5) x10^3/uL Immature Gran # (Auto) (0.00-0.03) x10^3u/L Absolute Lymphs (auto) (1.0-4.6) x10^3/uL Absolute Monos (auto) (0.0-1.3) x10^3/uL Absolute Nucleated RBC (0.00-0.01) x10^3u/L Lymphocytes % (24.0-44.0) % Monocytes % (0.0-12.0) % Eosinophils % (0.00-5.0) % Basophils % (0.0-0.4) % Absolute Granulocytes (1.4-6.9) x10^3/uL Basophils # (0-0.4) x10^3/uL Sodium (137-145) mmol/L Potassium (3.5-5.1) mmol/L Chloride (98-107) mmol/L Carbon Dioxide (22-30) mmol/L Anion Gap (5-15) MEQ/L BUN (7-17) mg/dL Creatinine (0.52-1.04) mg/dL Estimated GFR ML/MIN Glucose (74-106) mg/dL Lactic Acid 1.7 (0.4-2.0) Calcium (8.4-10.2) mg/dL Total Bilirubin (0.2-1.3) mg/dL AST (14-36) U/L ALT (0-35) U/L Alkaline Phosphatase (38-126) U/L Troponin I < 0.012 (0.000-0.034) ng/mL Serum Total Protein (6.3-8.2) g/dL Albumin (3.5-5.0) g/dL Amylase (30-110) U/L Lipase (23-300) U/L Urine Color (Yellow) Urine Appearance (Clear) Urine pH (4.6-8.0) Ur Specific [place] (1.005-1.030) Urine Protein (Negative) Urine Glucose (UA) (Negative) mg/dL Urine Ketones (Negative) Urine Blood (Negative) Urine Nitrite (Negative) Urine Bilirubin (Negative) Urine Urobilinogen (0.2) mg/dL Ur Leukocyte Esterase (Negative) U Hyaline Cast (Auto) (0-2) /LPF Urine Microscopic RBC (0-5) /HPF Urine Microscopic WBC (0-5) /HPF Ur Epithelial Cells (None Seen) /HPF Urine Bacteria (None Seen) /HPF Urine Culture Reflexed (NO) Influenza Type A Ag NEGATIVE (NEGATIVE) Influenza Type B Ag NEGATIVE (NEGATIVE) RSV (PCR) NEGATIVE (NEGATIVE) SARS-CoV-2 (PCR) NEGATIVE (NEGATIVE) 07/22/23 07/22/23 07/22/23 Range/Units 14:38 13:30 13:25 WBC (4.0-10.5) x10^3/uL RBC (4.1-5.4) x10^6/uL Hgb (12.0-16.0) g/dL Hct (35-47) % MCV (78-100) fL MCH (26-32) pg MCHC (32-36) g/dL RDW (11.5-14.0) % Plt Count (150-450) x10^3/uL MPV (7.5-11.0) fL Gran % (36.0-66.0) % Immature Gran % (Auto) (0.00-0.4) % Nucleat RBC Rel Count (0.00-0.1) % Eos # (Auto) (0-0.5) x10^3/uL Immature Gran # (Auto) (0.00-0.03) x10^3u/L Absolute Lymphs (auto) (1.0-4.6) x10^3/uL Absolute Monos (auto) (0.0-1.3) x10^3/uL Absolute Nucleated RBC (0.00-0.01) x10^3u/L Lymphocytes % (24.0-44.0) % Monocytes % (0.0-12.0) % Eosinophils % (0.00-5.0) % Basophils % (0.0-0.4) % Absolute Granulocytes (1.4-6.9) x10^3/uL Basophils # (0-0.4) x10^3/uL Sodium 142 (137-145) mmol/L Potassium 3.7 (3.5-5.1) mmol/L Chloride 104 (98-107) mmol/L Carbon Dioxide 23 (22-30) mmol/L Anion Gap 17.7 H (5-15) MEQ/L BUN 26 H (7-17) mg/dL Creatinine 0.58 (0.52-1.04) mg/dL Estimated GFR > 60.0 ML/MIN Glucose 132 H (74-106) mg/dL Lactic Acid (0.4-2.0) Calcium 9.1 (8.4-10.2) mg/dL Total Bilirubin 0.60 (0.2-1.3) mg/dL AST 35 (14-36) U/L ALT 26 (0-35) U/L Alkaline Phosphatase 79 (38-126) U/L Troponin I < 0.012 (0.000-0.034) ng/mL Serum Total Protein 7.1 (6.3-8.2) g/dL Albumin 4.4 (3.5-5.0) g/dL Amylase 82 (30-110) U/L Lipase 91 (23-300) U/L Urine Color Yellow (Yellow) Urine Appearance Clear (Clear) Urine pH 8.0 (4.6-8.0) Ur Specific [place] 1.020 (1.005-1.030) Urine Protein Negative (Negative) Urine Glucose (UA) Negative (Negative) mg/dL Urine Ketones Trace A (Negative) Urine Blood Negative (Negative) Urine Nitrite Negative (Negative) Urine Bilirubin Negative (Negative) Urine Urobilinogen 1.0 A (0.2) mg/dL Ur Leukocyte Esterase Trace A (Negative) U Hyaline Cast (Auto) NONE SEEN (0-2) /LPF Urine Microscopic RBC 3-5 (0-5) /HPF Urine Microscopic WBC 0-2 (0-5) /HPF Ur Epithelial Cells None Seen (None Seen) /HPF Urine Bacteria None Seen (None Seen) /HPF Urine Culture Reflexed NO (NO) Influenza Type A Ag (NEGATIVE) Influenza Type B Ag (NEGATIVE) RSV (PCR) (NEGATIVE) SARS-CoV-2 (PCR) (NEGATIVE) 07/22/23 Range/Units 13:16 WBC 11.9 H (4.0-10.5) x10^3/uL RBC 5.54 H (4.1-5.4) x10^6/uL Hgb 13.2 (12.0-16.0) g/dL Hct 41.2 (35-47) % MCV 74.4 L (78-100) fL MCH 23.8 L (26-32) pg MCHC 32.0 (32-36) g/dL RDW 16.1 H (11.5-14.0) % Plt Count 384 (150-450) x10^3/uL MPV 9.7 (7.5-11.0) fL Gran % 82.0 H (36.0-66.0) % Immature Gran % (Auto) 0.3 (0.00-0.4) % Nucleat RBC Rel Count 0.0 (0.00-0.1) % Eos # (Auto) 0.04 (0-0.5) x10^3/uL Immature Gran # (Auto) 0.03 (0.00-0.03) x10^3u/L Absolute Lymphs (auto) 1.64 (1.0-4.6) x10^3/uL Absolute Monos (auto) 0.38 (0.0-1.3) x10^3/uL Absolute Nucleated RBC 0.00 (0.00-0.01) x10^3u/L Lymphocytes % 13.7 L (24.0-44.0) % Monocytes % 3.2 (0.0-12.0) % Eosinophils % 0.3 (0.00-5.0) % Basophils % 0.5 (0.0-0.4) % Absolute Granulocytes 9.78 H (1.4-6.9) x10^3/uL Basophils # 0.06 (0-0.4) x10^3/uL Sodium (137-145) mmol/L Potassium (3.5-5.1) mmol/L Chloride (98-107) mmol/L Carbon Dioxide (22-30) mmol/L Anion Gap (5-15) MEQ/L BUN (7-17) mg/dL Creatinine (0.52-1.04) mg/dL Estimated GFR ML/MIN Glucose (74-106) mg/dL Lactic Acid (0.4-2.0) Calcium (8.4-10.2) mg/dL Total Bilirubin (0.2-1.3) mg/dL AST (14-36) U/L ALT (0-35) U/L Alkaline Phosphatase (38-126) U/L Troponin I (0.000-0.034) ng/mL Serum Total Protein (6.3-8.2) g/dL Albumin (3.5-5.0) g/dL Amylase (30-110) U/L Lipase (23-300) U/L Urine Color (Yellow) Urine Appearance (Clear) Urine pH (4.6-8.0) Ur Specific [place] (1.005-1.030) Urine Protein (Negative) Urine Glucose (UA) (Negative) mg/dL Urine Ketones (Negative) Urine Blood (Negative) Urine Nitrite (Negative) Urine Bilirubin (Negative) Urine Urobilinogen (0.2) mg/dL Ur Leukocyte Esterase (Negative) U Hyaline Cast (Auto) (0-2) /LPF Urine Microscopic RBC (0-5) /HPF Urine Microscopic WBC (0-5) /HPF Ur Epithelial Cells (None Seen) /HPF Urine Bacteria (None Seen) /HPF Urine Culture Reflexed (NO) Influenza Type A Ag (NEGATIVE) Influenza Type B Ag (NEGATIVE) RSV (PCR) (NEGATIVE) SARS-CoV-2 (PCR) (NEGATIVE) - Progress Progress Note: 07/22/23 19:[address] Cee 07/22/23 19:37 Nursing note and vital signs reviewed No food or housing insecurities noted Additional history per All lab results reviewed and shared w pt CT result reviewed and shared w pt 1L NS bolus 07/22/23 19:39 50mcg IV Fentanyl/4mg IV Zofran w improvement in pain 0.5mg IV dilaudid when pain returned 4mg IV Zofran 5mg IV Compazine Pt admitted for pain control and hydration Counseled pt/family regarding: lab results, diagnosis, need for follow-up, rad results Medical Desision Making - Independent Historian Additional History obtained from: Spouse - Discussion of managment Care discussed with:: hospitalist Reviewed:: Test results, Need for additional workup Agreed on:: place in obs Will see patient: in hospital - Risk of complications The pt has a high risk of morbidity or mortality based on: Decision regarding hospitilization or escalation of hosp level of care - Departure Departure Disposition: Observation Clinical Impression: Enteritis Condition: Stable Critical Care Time: No Referrals: JUMANA BONDS NP [Primary Care Provider] - Follow up/PCP as directed
[2023-07-22 15:10] LABS: Appearance Clear (Clear); Bacteria None Seen /HPF (None Seen); Bilirubin Negative (Negative); Blood Negative (Negative); Epithelial Cells None Seen /HPF (None Seen); Glucose, Urine Negative (Negative); Hyaline Casts NONE SEEN /LPF (0-2); Ketones Trace (Negative); Leukocyte Esterase Trace (Negative); Nitrite Negative (Negative); Protein,Urine Dip Negative (Negative); WBC 0-2 /HPF (0-5)
[2023-07-22 15:13] LABS: ADD URINE CULTURE? NO (NO)
[2023-07-22] MEDS ORDERED: Sodium Chloride 0.9% 1000 ML 1,000 ML IV STA (16:10)
[2023-07-22] MEDS ORDERED: SUBLIMAZE 100 MCG/2 ML IV ONE (16:10)
[2023-07-22] MEDS ORDERED: Zofran 4 MG/2 ML VIAL IV ONE ×2 (16:11→18:04)
--- NOTE | 2023-07-22 16:19 | XRAY ---
Indication: Abdomen pain. Multiple contiguous axial images obtained through the abdomen and pelvis without contrast. Comparison: August 07, 2020 Lung bases clear of infiltrate and effusion. Heart not enlarged. Noncontrasted stomach and bowel loops appear nonobstructed. New mild diffuse fluid distended small bowel loops with wall thickening and fluid leveling favoring enteritis. Appendix not seen. No free fluid/air. Stable nonobstructing micro-calculus in each kidney. Remaining liver, gallbladder, pancreas, spleen, adrenal glands, kidneys, ureters, bladder, and uterus are unremarkable for noncontrast exam. Minimal aortic calcifications without AAA. Osseous structures intact. Impression: 1. New diffuse fluid distended small bowel loops with wall thickening and fluid leveling favoring enteritis. 2. Stable nonobstructing micro-calculus bilaterally.
[2023-07-22] MEDS ORDERED: Zofran 4 MG/2 ML VIAL ONE ×2 (16:26→18:10)
[2023-07-22] MEDS ORDERED: Sodium Chloride 0.9% 1000 ML 1,000 ML ONE (16:27)
[2023-07-22] MEDS ORDERED: SUBLIMAZE 100 MCG/2 ML ONE (16:27)
[2023-07-22 17:18] LABS: INFLUENZA A NEGATIVE (NEGATIVE); INFLUENZA B NEGATIVE (NEGATIVE); RESPIRATORY SYNCTIAL VIRUS NEGATIVE (NEGATIVE); SARS-CoV-2 Xpert Express NEGATIVE (NEGATIVE)
[2023-07-22] MEDS ORDERED: Hydromorphone 1 mg/ml Injection IV ONE (17:36)
[2023-07-22] MEDS ORDERED: Hydromorphone 1 mg/ml Injection ONE (17:44)
[2023-07-22] MEDS ORDERED: Compazine 10 MG/2 ML IV ONE (19:04)
[2023-07-22] MEDS ORDERED: Compazine 10 MG/2 ML ONE (19:07)
[2023-07-22] MEDS ORDERED: SUMATRIPTAN SUCCINATE 50 MG PO PRN (20:15)
[2023-07-22] MEDS ORDERED: DUONEB 0.5-3 MG/3 ml Neb IH PRN (20:16)
[2023-07-22] MEDS ORDERED: Zofran 4 MG/2 ML VIAL IV PRN (20:16)
[2023-07-22] MEDS ORDERED: Hydromorphone 1 mg/ml Injection IV PRN (20:22)
--- NOTE | 2023-07-22 20:28 | PCM.HP ---
History of Present Illness - Chief Complaint Chief Complaint: enteritis History of Present Illness: is a 67 year old female with history of asthma, migrianes, and rheumatic fever with residual heart murmur presented with c/o suri-umbilical abdominal pain since this AM. Described as cramping in nature, sharp at times, no radiation, 5 out of 10. No other associated symptoms. Had similar pain 3 weeks ago, lasted for 1.5 days and it went away on its own. Denies dysuria, hematuria, vomiting, diarrhea. Has some nausea. No SOB, chest pain, fever, chills. Denies flank pain CT abd in ER shows enteritis and BL non-obstructing kidney stones. No other acute findings - Review of Systems Constitutional: No Symptoms Eyes: No Symptoms Ears, Nose, & Throat: No Symptoms Respiratory: No Symptoms Cardiac: No Symptoms Abdominal/Gastrointestinal: Abdominal Pain, Nausea Genitourinary Symptoms: No Symptoms Musculoskeletal: No Symptoms Skin: No Symptoms Neurological: No Symptoms Psychological: No Symptoms Endocrine: No Symptoms Hematologic/Lymphatic: No Symptoms Immunological/Allergic: No Symptoms Medications & Allergies Home Medications: Home Medication List Sumatriptan Succinate [Imitrex] 100 mg PO UD PRN 07/22/23 [History Confirmed 07/22/23] Allergies/Adverse Reactions: Allergies Allergy/AdvReac Type Severity Reaction Status Date / Time levofloxacin [From Levaquin] Allergy Verified 07/22/23 13:05 clonazepam AdvReac Mild altered loc Verified 07/22/23 13:05 divalproex sodium AdvReac Mild hair loss Verified 07/22/23 13:05 [From Depakote] tizanidine AdvReac Mild altered loc Verified 07/22/23 13:05 trazodone AdvReac Mild altered loc Verified 07/22/23 13:05 - Past Medical History Past Medical History: Yes Neurological History: Migraines ENT History: No Pertinent History Cardiac History: Other Respiratory History: Asthma, Pneumonia Endocrine Medical History: No Pertinent History Musculoskelatal History: Arthritis GI Medical History: Other History: No Pertinent History Pyscho-Social History: No Pertinent History Reproductive Disorders: No Pertinent History Comment: HX RHEUMATIC FEVER - RESIDUAL HEART MURMUR. 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 - Past Surgical History Past Surgical History: Yes Neuro Surgical History: No Pertinent History Cardiac History: No Pertinent History Respiratory Surgery: No Pertinent History GI Surgical History: No Pertinent History Genitourinary Surgical Hx: No Pertinent History Musculskeletal Surgical Hx: No Pertinent History Female Surgical History: No Pertinent History Other Surgical History: . - Social History Smoking Status: Never smoker Exposure to second hand smoke: No Alcohol: None Drug Use: none Significant Family History: no pertinent family hx - Physical Exam Vital Signs: Vital Signs - 24 hr Temp Pulse Resp BP BP Pulse Ox 07/22/23 19:40 98 07/22/23 18:14 72 93/44 100 07/22/23 17:00 99 07/22/23 16:54 98 07/22/23 16:40 99 07/22/23 16:32 100 07/22/23 16:00 69 129/65 99 07/22/23 15:30 117/60 97 07/22/23 15:28 107/68 98 07/22/23 15:18 68 16 98 07/22/23 14:01 76 17 128/74 96 07/22/23 13:34 111/56 93 L 07/22/23 13:10 97.6 F 78 129/67 98 07/22/23 13:00 71 117/87 97 07/22/23 12:55 97.6 F 78 129/67 98 General Appearance: mild distress Neurologic Exam: alert, oriented x 3, cooperative Eye Exam: PERRL/EOMI, eyes nml inspection Ears, Nose, Throat Exam: normal ENT inspection Neck Exam: normal inspection, non-tender, supple, full range of motion Respiratory Exam: normal breath sounds, lungs clear, airway intact Cardiovascular Exam: regular rate/rhythm, normal heart sounds Gastrointestinal/Abdomen Exam: soft, normal bowel sounds, tenderness Pelvic Exam: not done Rectal Exam: deferred Back Exam: normal inspection Extremity Exam: normal inspection, normal range of motion Skin Exam: normal color, warm, dry Results - Labs Lab/Micro Results: Lab Results-Last 24 Hours 07/22/23 07/22/23 07/22/23 Range/Units 13:16 13:25 13:30 WBC 11.9 H (4.0-10.5) x10^3/uL RBC 5.54 H (4.1-5.4) x10^6/uL Hgb 13.2 (12.0-16.0) g/dL Hct 41.2 (35-47) % MCV 74.4 L (78-100) fL MCH 23.8 L (26-32) pg MCHC 32.0 (32-36) g/dL RDW 16.1 H (11.5-14.0) % Plt Count 384 (150-450) x10^3/uL MPV 9.7 (7.5-11.0) fL Gran % 82.0 H (36.0-66.0) % Immature Gran % (Auto) 0.3 (0.00-0.4) % Nucleat RBC Rel Count 0.0 (0.00-0.1) % Eos # (Auto) 0.04 (0-0.5) x10^3/uL Immature Gran # (Auto) 0.03 (0.00-0.03) x10^3u/L Absolute Lymphs (auto) 1.64 (1.0-4.6) x10^3/uL Absolute Monos (auto) 0.38 (0.0-1.3) x10^3/uL Absolute Nucleated RBC 0.00 (0.00-0.01) x10^3u/L Lymphocytes % 13.7 L (24.0-44.0) % Monocytes % 3.2 (0.0-12.0) % Eosinophils % 0.3 (0.00-5.0) % Basophils % 0.5 (0.0-0.4) % Absolute Granulocytes 9.78 H (1.4-6.9) x10^3/uL Basophils # 0.06 (0-0.4) x10^3/uL Sodium 142 (137-145) mmol/L Potassium 3.7 (3.5-5.1) mmol/L Chloride 104 (98-107) mmol/L Carbon Dioxide 23 (22-30) mmol/L Anion Gap 17.7 H (5-15) MEQ/L BUN 26 H (7-17) mg/dL Creatinine 0.58 (0.52-1.04) mg/dL Estimated GFR > 60.0 ML/MIN Glucose 132 H (74-106) mg/dL Lactic Acid (0.4-2.0) Calcium 9.1 (8.4-10.2) mg/dL Total Bilirubin 0.60 (0.2-1.3) mg/dL AST 35 (14-36) U/L ALT 26 (0-35) U/L Alkaline Phosphatase 79 (38-126) U/L Troponin I < 0.012 (0.000-0.034) ng/mL Serum Total Protein 7.1 (6.3-8.2) g/dL Albumin 4.4 (3.5-5.0) g/dL Amylase 82 (30-110) U/L Lipase 91 (23-300) U/L Urine Color (Yellow) Urine Appearance (Clear) Urine pH (4.6-8.0) Ur Specific [place] (1.005-1.030) Urine Protein (Negative) Urine Glucose (UA) (Negative) mg/dL Urine Ketones (Negative) Urine Blood (Negative) Urine Nitrite (Negative) Urine Bilirubin (Negative) Urine Urobilinogen (0.2) mg/dL Ur Leukocyte Esterase (Negative) U Hyaline Cast (Auto) (0-2) /LPF Urine Microscopic RBC (0-5) /HPF Urine Microscopic WBC (0-5) /HPF Ur Epithelial Cells (None Seen) /HPF Urine Bacteria (None Seen) /HPF Urine Culture Reflexed (NO) Influenza Type A Ag (NEGATIVE) Influenza Type B Ag (NEGATIVE) RSV (PCR) (NEGATIVE) SARS-CoV-2 (PCR) (NEGATIVE) 07/22/23 07/22/23 07/22/23 Range/Units 14:38 16:25 17:26 WBC (4.0-10.5) x10^3/uL RBC (4.1-5.4) x10^6/uL Hgb (12.0-16.0) g/dL Hct (35-47) % MCV (78-100) fL MCH (26-32) pg MCHC (32-36) g/dL RDW (11.5-14.0) % Plt Count (150-450) x10^3/uL MPV (7.5-11.0) fL Gran % (36.0-66.0) % Immature Gran % (Auto) (0.00-0.4) % Nucleat RBC Rel Count (0.00-0.1) % Eos # (Auto) (0-0.5) x10^3/uL Immature Gran # (Auto) (0.00-0.03) x10^3u/L Absolute Lymphs (auto) (1.0-4.6) x10^3/uL Absolute Monos (auto) (0.0-1.3) x10^3/uL Absolute Nucleated RBC (0.00-0.01) x10^3u/L Lymphocytes % (24.0-44.0) % Monocytes % (0.0-12.0) % Eosinophils % (0.00-5.0) % Basophils % (0.0-0.4) % Absolute Granulocytes (1.4-6.9) x10^3/uL Basophils # (0-0.4) x10^3/uL Sodium (137-145) mmol/L Potassium (3.5-5.1) mmol/L Chloride (98-107) mmol/L Carbon Dioxide (22-30) mmol/L Anion Gap (5-15) MEQ/L BUN (7-17) mg/dL Creatinine (0.52-1.04) mg/dL Estimated GFR ML/MIN Glucose (74-106) mg/dL Lactic Acid 1.7 (0.4-2.0) Calcium (8.4-10.2) mg/dL Total Bilirubin (0.2-1.3) mg/dL AST (14-36) U/L ALT (0-35) U/L Alkaline Phosphatase (38-126) U/L Troponin I < 0.012 (0.000-0.034) ng/mL Serum Total Protein (6.3-8.2) g/dL Albumin (3.5-5.0) g/dL Amylase (30-110) U/L Lipase (23-300) U/L Urine Color Yellow (Yellow) Urine Appearance Clear (Clear) Urine pH 8.0 (4.6-8.0) Ur Specific [place] 1.020 (1.005-1.030) Urine Protein Negative (Negative) Urine Glucose (UA) Negative (Negative) mg/dL Urine Ketones Trace A (Negative) Urine Blood Negative (Negative) Urine Nitrite Negative (Negative) Urine Bilirubin Negative (Negative) Urine Urobilinogen 1.0 A (0.2) mg/dL Ur Leukocyte Esterase Trace A (Negative) U Hyaline Cast (Auto) NONE SEEN (0-2) /LPF Urine Microscopic RBC 3-5 (0-5) /HPF Urine Microscopic WBC 0-2 (0-5) /HPF Ur Epithelial Cells None Seen (None Seen) /HPF Urine Bacteria None Seen (None Seen) /HPF Urine Culture Reflexed NO (NO) Influenza Type A Ag (NEGATIVE) Influenza Type B Ag (NEGATIVE) RSV (PCR) (NEGATIVE) SARS-CoV-2 (PCR) (NEGATIVE) 07/22/23 Range/Units Unknown WBC (4.0-10.5) x10^3/uL RBC (4.1-5.4) x10^6/uL Hgb (12.0-16.0) g/dL Hct (35-47) % MCV (78-100) fL MCH (26-32) pg MCHC (32-36) g/dL RDW (11.5-14.0) % Plt Count (150-450) x10^3/uL MPV (7.5-11.0) fL Gran % (36.0-66.0) % Immature Gran % (Auto) (0.00-0.4) % Nucleat RBC Rel Count (0.00-0.1) % Eos # (Auto) (0-0.5) x10^3/uL Immature Gran # (Auto) (0.00-0.03) x10^3u/L Absolute Lymphs (auto) (1.0-4.6) x10^3/uL Absolute Monos (auto) (0.0-1.3) x10^3/uL Absolute Nucleated RBC (0.00-0.01) x10^3u/L Lymphocytes % (24.0-44.0) % Monocytes % (0.0-12.0) % Eosinophils % (0.00-5.0) % Basophils % (0.0-0.4) % Absolute Granulocytes (1.4-6.9) x10^3/uL Basophils # (0-0.4) x10^3/uL Sodium (137-145) mmol/L Potassium (3.5-5.1) mmol/L Chloride (98-107) mmol/L Carbon Dioxide (22-30) mmol/L Anion Gap (5-15) MEQ/L BUN (7-17) mg/dL Creatinine (0.52-1.04) mg/dL Estimated GFR ML/MIN Glucose (74-106) mg/dL Lactic Acid (0.4-2.0) Calcium (8.4-10.2) mg/dL Total Bilirubin (0.2-1.3) mg/dL AST (14-36) U/L ALT (0-35) U/L Alkaline Phosphatase (38-126) U/L Troponin I (0.000-0.034) ng/mL Serum Total Protein (6.3-8.2) g/dL Albumin (3.5-5.0) g/dL Amylase (30-110) U/L Lipase (23-300) U/L Urine Color (Yellow) Urine Appearance (Clear) Urine pH (4.6-8.0) Ur Specific [place] (1.005-1.030) Urine Protein (Negative) Urine Glucose (UA) (Negative) mg/dL Urine Ketones (Negative) Urine Blood (Negative) Urine Nitrite (Negative) Urine Bilirubin (Negative) Urine Urobilinogen (0.2) mg/dL Ur Leukocyte Esterase (Negative) U Hyaline Cast (Auto) (0-2) /LPF Urine Microscopic RBC (0-5) /HPF Urine Microscopic WBC (0-5) /HPF Ur Epithelial Cells (None Seen) /HPF Urine Bacteria (None Seen) /HPF Urine Culture Reflexed (NO) Influenza Type A Ag NEGATIVE (NEGATIVE) Influenza Type B Ag NEGATIVE (NEGATIVE) RSV (PCR) NEGATIVE (NEGATIVE) SARS-CoV-2 (PCR) NEGATIVE (NEGATIVE) - Radiology Impressions Radiology Exams & Impressions: Radiology Procedures Category Date Time Status ABDOMEN AND PELVIS W/0 CONTRAS [CT] Stat Exams 07/22/23 13:17 Completed Assessment/Plan (1) Enteritis Current Visit: Yes Status: Acute Assessment & Plan: CT abd shows edema and signs of enteritis. Bowel rest, IVF, and pain control. Leukocytosis is likely a reaction to this Code(s): K52.9 - NONINFECTIVE GASTROENTERITIS AND COLITIS, UNSPECIFIED (2) Leukocytosis Current Visit: Yes Status: Acute Assessment & Plan: Flu and covid negative. UA and CXR clear. Likely due to the enteritis. WBC 11.9, afebrile. Not septic on exam. Monitor. Code(s): D72.829 - ELEVATED WHITE BLOOD CELL COUNT, UNSPECIFIED (3) Azotemia Current Visit: Yes Status: Acute Assessment & Plan: BUN 26, Cr 0.58. Likely a bit volume depleted due to nausea, abd pain and poor intake today. Plan to feed as tolerated. IVF at 100ml/hr with NS. Repeat labs in AM Code(s): R79.89 - OTHER SPECIFIED ABNORMAL FINDINGS OF BLOOD CHEMISTRY (4) Asthma Current Visit: Yes Status: Acute Assessment & Plan: Stable, no active symptoms. PRN albuterol INH Code(s): J45.909 - UNSPECIFIED ASTHMA, UNCOMPLICATED (5) Migraines Current Visit: Yes Status: Acute Assessment & Plan: No active issue. on Imitrex prn headache Code(s): G43.909 - MIGRAINE, UNSP, NOT INTRACTABLE, WITHOUT STATUS MIGRAINOSUS Telemedicine Encounter - Telemedicine Encounter Telemedicine Encounter: The entirety of this encounter was performed via Telemedicine" Pt gave me verbal consent to have this telemedicine visit
[2023-07-22] MEDS: Sodium Chloride 0.9% 1000 ML 1,000 ML IV SCH (20:33)
[2023-07-23 04:52] LABS: BASOPHIL % 0.6 % (0.0-0.4); Basophil (Absolute #) 0.05 x10^3/uL (0-0.4); Eosinophil % 1.4 % (0.00-5.0); Eosinophil (Absolute #) 0.12 x10^3/uL (0-0.5); Hematocrit 38.5 % (35-47); Hemoglobin 11.9 g/dL (12.0-16.0); IMMATURE GRAN # 0.02 x10^3u/L (0.00-0.03); IMMATURE GRAN % 0.2 % (0.00-0.4); Lymphocyte (Absolute #) 2.58 x10^3/uL (1.0-4.6); Lymphocytes % 29.9 % (24.0-44.0); Mean Cell Volume 76.5 fL (78-100); Mean Corpuscular Hemoglobin 23.7 pg (26-32); Mean Corpuscular Hgb Concent. 30.9 g/dL (32-36); Mean Platelet Volume 9.3 fL (7.5-11.0); Monocyte (Absolute #) 0.56 x10^3/uL (0.0-1.3); Monocytes % 6.5 % (0.0-12.0); Neutrophil % 61.4 % (36.0-66.0); Platelet Count 322 x10^3/uL (150-450); Red Blood Count 5.03 x10^6/uL (4.1-5.4); White Blood Count 8.6 x10^3/uL (4.0-10.5)
[2023-07-23 05:12] LABS: ALBUMIN 3.5 g/dL (3.5-5.0); ALKALINE PHOSPHATASE 64 U/L (38-126); ANION GAP 12.5 MEQ/L (5-15); BLOOD UREA NITROGEN 19 mg/dL (7-17); CHLORIDE 109 mmol/L (98-107); Calcium 8.3 mg/dL (8.4-10.2); Carbon Dioxide 24 mmol/L (22-30); Creatinine 1 0.62 mg/dL (0.52-1.04); EST GLOMERULAR FILTRATION RATE > 60.0 ML/MIN; Glucose 93 mg/dL (74-106); Potassium 3.7 mmol/L (3.5-5.1); SGOT/AST 30 U/L (14-36); SGPT/ALT 22 U/L (0-35); SODIUM 141 mmol/L (137-145); Total Protein 5.9 g/dL (6.3-8.2)
[2023-07-23] MEDS: Sodium Chloride 0.9% 1000 ML 1,000 ML IV SCH (06:25)
[2023-07-23 06:53] VITALS: TEMP 97
[2023-07-23] MEDS ORDERED: MEDICATION INTERVENTION MC SCH (07:30)
[2023-07-23] MEDS ORDERED: ENOXAPARIN SODIUM SQ SCH (10:00)
[2023-07-23] MEDS ORDERED: PATIENT OWN MEDICATION PO PRN (10:06)
[2023-07-23 11:29] VITALS: BP 120/58; PULSE 66; RESP 17; O2SAT 98
--- NOTE | 2023-07-23 11:34 | PCM.DS ---
Discharge Summary Date of Admission: 07/22/23 19:44 Date of Discharge: 07/23/23 Admitting Physician: TRICIA SEGOVIA DO Primary Care Provider: JUMANA BONDS Allergies Allergies levofloxacin [From Levaquin] Allergy (Verified 07/22/23 13:05) clonazepam Adverse Reaction (Mild, Verified 07/22/23 13:05) altered loc divalproex sodium [From Depakote] Adverse Reaction (Mild, Verified 07/22/23 13:05) hair loss tizanidine Adverse Reaction (Mild, Verified 07/22/23 13:05) altered loc trazodone Adverse Reaction (Mild, Verified 07/22/23 13:05) altered loc Hospital Summary - Hospital Course Hospital Course: is a 67 year old female with history of asthma, migrianes, and rheumatic fever with residual heart murmur presented with c/o suri-umbilical abdominal pain since this AM. Described as cramping in nature, sharp at times, no radiation, 5 out of 10. No other associated symptoms. Had similar pain 3 weeks ago, lasted for 1.5 days and it went away on its own. Denies dysuria, hematuria, vomiting, diarrhea. Has some nausea. During hospital course CT abd in ER shows enteritis and BL non-obstructing kidney stones. No other acute finding s. Patient treated with bowel rest/IVF, symptoms have resolved. Lab findings now unremarkable. Advised patient close follow up with PCP for possible GI referral. Will discharge with zofran, protonix, as well as bentyl. Patient is agreeable to plan and ready for discharge. New Diagnosis: Enteritis New Medications:Zofran, protonix, bentyl Follow Up: PCP - referral to GI Latest Assessment & Plan (1) Enteritis Current Visit: Yes Status: Acute Assessment & Plan: CT abd shows edema and signs of enteritis. Bowel rest, IVF, and pain control. Leukocytosis is likely a reaction to this Code(s): K52.9 - NONINFECTIVE GASTROENTERITIS AND COLITIS, UNSPECIFIED (2) Leukocytosis Current Visit: Yes Status: Acute Assessment & Plan: Flu and covid negative. UA and CXR clear. Likely due to the enteritis. WBC 11.9, afebrile. Not septic on exam. Monitor. Code(s): D72.829 - ELEVATED WHITE BLOOD CELL COUNT, UNSPECIFIED (3) Azotemia Current Visit: Yes Status: Acute Assessment & Plan: BUN 26, Cr 0.58. Likely a bit volume depleted due to nausea, abd pain and poor intake today. Plan to feed as tolerated. IVF at 100ml/hr with NS. Repeat labs in AM Code(s): R79.89 - OTHER SPECIFIED ABNORMAL FINDINGS OF BLOOD CHEMISTRY (4) Asthma Current Visit: Yes Status: Acute Assessment & Plan: Stable, no active symptoms. PRN albuterol INH Code(s): J45.909 - UNSPECIFIED ASTHMA, UNCOMPLICATED (5) Migraines Current Visit: Yes Status: Acute Assessment & Plan: No active issue. on Imitrex prn headache Code(s): G43.909 - MIGRAINE, UNSP, NOT INTRACTABLE, WITHOUT STATUS MIGRAINOSUS I spent 45 minutes [id number] with the patient on the day of discharge pe rforming discharge exam, discussing hospital stay and discharge instructions with patient and caregivers, preparation of discharge records, prescriptions & referral forms and addressing any questions/concerns the patient had as documented above. - Vitals & Intake/Output Vital Signs: Vital Signs Temperature 97.0 F 07/23/23 11:28 Pulse Rate 66 07/23/23 11:28 Respiratory Rate 17 07/23/23 11:28 Blood Pressure 120/58 07/23/23 11:28 O2 Sat by Pulse Oximetry 98 07/23/23 11:28 Intake & Output: Intake & Output 07/20/23 07/21/23 07/22/23 07/23/23 11:59 11:59 11:59 11:59 Intake Total 795 Output Total 600 Balance 195 Weight 44.4 kg - Lab Result Diagrams: 07/23/23 04:17 07/23/23 04:17 Lab Results-Last 24 Hrs: Lab Results-Last 24 Hours 07/22/23 07/22/23 07/22/23 Range/Units 13:16 13:25 13:30 WBC 11.9 H (4.0-10.5) x10^3/uL RBC 5.54 H (4.1-5.4) x10^6/uL Hgb 13.2 (12.0-16.0) g/dL Hct 41.2 (35-47) % MCV 74.4 L (78-100) fL MCH 23.8 L (26-32) pg MCHC 32.0 (32-36) g/dL RDW 16.1 H (11.5-14.0) % Plt Count 384 (150-450) x10^3/uL MPV 9.7 (7.5-11.0) fL Gran % 82.0 H (36.0-66.0) % Immature Gran % (Auto) 0.3 (0.00-0.4) % Nucleat RBC Rel Count 0.0 (0.00-0.1) % Eos # (Auto) 0.04 (0-0.5) x10^3/uL Immature Gran # (Auto) 0.03 (0.00-0.03) x10^3u/L Absolute Lymphs (auto) 1.64 (1.0-4.6) x10^3/uL Absolute Monos (auto) 0.38 (0.0-1.3) x10^3/uL Absolute Nucleated RBC 0.00 (0.00-0.01) x10^3u/L Lymphocytes % 13.7 L (24.0-44.0) % Monocytes % 3.2 (0.0-12.0) % Eosinophils % 0.3 (0.00-5.0) % Basophils % 0.5 (0.0-0.4) % Absolute Granulocytes 9.78 H (1.4-6.9) x10^3/uL Basophils # 0.06 (0-0.4) x10^3/uL Sodium 142 (137-145) mmol/L Potassium 3.7 (3.5-5.1) mmol/L Chloride 104 (98-107) mmol/L Carbon Dioxide 23 (22-30) mmol/L Anion Gap 17.7 H (5-15) MEQ/L BUN 26 H (7-17) mg/dL Creatinine 0.58 (0.52-1.04) mg/dL Estimated GFR > 60.0 ML/MIN Glucose 132 H (74-106) mg/dL Lactic Acid (0.4-2.0) Calcium 9.1 (8.4-10.2) mg/dL Total Bilirubin 0.60 (0.2-1.3) mg/dL AST 35 (14-36) U/L ALT 26 (0-35) U/L Alkaline Phosphatase 79 (38-126) U/L Troponin I < 0.012 (0.000-0.034) ng/mL Serum Total Protein 7.1 (6.3-8.2) g/dL Albumin 4.4 (3.5-5.0) g/dL Amylase 82 (30-110) U/L Lipase 91 (23-300) U/L Urine Color (Yellow) Urine Appearance (Clear) Urine pH (4.6-8.0) Ur Specific Douglas (1.005-1.030) Urine Protein (Negative) Urine Glucose (UA) (Negative) mg/dL Urine Ketones (Negative) Urine Blood (Negative) Urine Nitrite (Negative) Urine Bilirubin (Negative) Urine Urobilinogen (0.2) mg/dL Ur Leukocyte Esterase (Negative) U Hyaline Cast (Auto) (0-2) /LPF Urine Microscopic RBC (0-5) /HPF Urine Microscopic WBC (0-5) /HPF Ur Epithelial Cells (None Seen) /HPF Urine Bacteria (None Seen) /HPF Urine Culture Reflexed (NO) Influenza Type A Ag (NEGATIVE) Influenza Type B Ag (NEGATIVE) RSV (PCR) (NEGATIVE) SARS-CoV-2 (PCR) (NEGATIVE) 07/22/23 07/22/23 07/22/23 Range/Units 14:38 16:25 17:26 WBC (4.0-10.5) x10^3/uL RBC (4.1-5.4) x10^6/uL Hgb (12.0-16.0) g/dL Hct (35-47) % MCV (78-100) fL MCH (26-32) pg MCHC (32-36) g/dL RDW (11.5-14.0) % Plt Count (150-450) x10^3/uL MPV (7.5-11.0) fL Gran % (36.0-66.0) % Immature Gran % (Auto) (0.00-0.4) % Nucleat RBC Rel Count (0.00-0.1) % Eos # (Auto) (0-0.5) x10^3/uL Immature Gran # (Auto) (0.00-0.03) x10^3u/L Absolute Lymphs (auto) (1.0-4.6) x10^3/uL Absolute Monos (auto) (0.0-1.3) x10^3/uL Absolute Nucleated RBC (0.00-0.01) x10^3u/L Lymphocytes % (24.0-44.0) % Monocytes % (0.0-12.0) % Eosinophils % (0.00-5.0) % Basophils % (0.0-0.4) % Absolute Granulocytes (1.4-6.9) x10^3/uL Basophils # (0-0.4) x10^3/uL Sodium (137-145) mmol/L Potassium (3.5-5.1) mmol/L Chloride (98-107) mmol/L Carbon Dioxide (22-30) mmol/L Anion Gap (5-15) MEQ/L BUN (7-17) mg/dL Creatinine (0.52-1.04) mg/dL Estimated GFR ML/MIN Glucose (74-106) mg/dL Lactic Acid 1.7 (0.4-2.0) Calcium (8.4-10.2) mg/dL Total Bilirubin (0.2-1.3) mg/dL AST (14-36) U/L ALT (0-35) U/L Alkaline Phosphatase (38-126) U/L Troponin I < 0.012 (0.000-0.034) ng/mL Serum Total Protein (6.3-8.2) g/dL Albumin (3.5-5.0) g/dL Amylase (30-110) U/L Lipase (23-300) U/L Urine Color Yellow (Yellow) Urine Appearance Clear (Clear) Urine pH 8.0 (4.6-8.0) Ur Specific Douglas 1.020 (1.005-1.030) Urine Protein Negative (Negative) Urine Glucose (UA) Negative (Negative) mg/dL Urine Ketones Trace A (Negative) Urine Blood Negative (Negative) Urine Nitrite Negative (Negative) Urine Bilirubin Negative (Negative) Urine Urobilinogen 1.0 A (0.2) mg/dL Ur Leukocyte Esterase Trace A (Negative) U Hyaline Cast (Auto) NONE SEEN (0-2) /LPF Urine Microscopic RBC 3-5 (0-5) /HPF Urine Microscopic WBC 0-2 (0-5) /HPF Ur Epithelial Cells None Seen (None Seen) /HPF Urine Bacteria None Seen (None Seen) /HPF Urine Culture Reflexed NO (NO) Influenza Type A Ag (NEGATIVE) Influenza Type B Ag (NEGATIVE) RSV (PCR) (NEGATIVE) SARS-CoV-2 (PCR) (NEGATIVE) 07/22/23 07/22/23 07/23/23 Range/Units 21:21 Unknown 04:17 WBC 8.6 (4.0-10.5) x10^3/uL RBC 5.03 (4.1-5.4) x10^6/uL Hgb 11.9 L (12.0-16.0) g/dL Hct 38.5 (35-47) % MCV 76.5 L (78-100) fL MCH 23.7 L (26-32) pg MCHC 30.9 L (32-36) g/dL RDW 16.0 H (11.5-14.0) % Plt Count 322 (150-450) x10^3/uL MPV 9.3 (7.5-11.0) fL Gran % 61.4 (36.0-66.0) % Immature Gran % (Auto) 0.2 (0.00-0.4) % Nucleat RBC Rel Count 0.0 (0.00-0.1) % Eos # (Auto) 0.12 (0-0.5) x10^3/uL Immature Gran # (Auto) 0.02 (0.00-0.03) x10^3u/L Absolute Lymphs (auto) 2.58 (1.0-4.6) x10^3/uL Absolute Monos (auto) 0.56 (0.0-1.3) x10^3/uL Absolute Nucleated RBC 0.00 (0.00-0.01) x10^3u/L Lymphocytes % 29.9 (24.0-44.0) % Monocytes % 6.5 (0.0-12.0) % Eosinophils % 1.4 (0.00-5.0) % Basophils % 0.6 (0.0-0.4) % Absolute Granulocytes 5.30 (1.4-6.9) x10^3/uL Basophils # 0.05 (0-0.4) x10^3/uL Sodium (137-145) mmol/L Potassium (3.5-5.1) mmol/L Chloride (98-107) mmol/L Carbon Dioxide (22-30) mmol/L Anion Gap (5-15) MEQ/L BUN (7-17) mg/dL Creatinine (0.52-1.04) mg/dL Estimated GFR ML/MIN Glucose (74-106) mg/dL Lactic Acid (0.4-2.0) Calcium (8.4-10.2) mg/dL Total Bilirubin (0.2-1.3) mg/dL AST (14-36) U/L ALT (0-35) U/L Alkaline Phosphatase (38-126) U/L Troponin I < 0.012 (0.000-0.034) ng/mL Serum Total Protein (6.3-8.2) g/dL Albumin (3.5-5.0) g/dL Amylase (30-110) U/L Lipase (23-300) U/L Urine Color (Yellow) Urine Appearance (Clear) Urine pH (4.6-8.0) Ur Specific Douglas (1.005-1.030) Urine Protein (Negative) Urine Glucose (UA) (Negative) mg/dL Urine Ketones (Negative) Urine Blood (Negative) Urine Nitrite (Negative) Urine Bilirubin (Negative) Urine Urobilinogen (0.2) mg/dL Ur Leukocyte Esterase (Negative) U Hyaline Cast (Auto) (0-2) /LPF Urine Microscopic RBC (0-5) /HPF Urine Microscopic WBC (0-5) /HPF Ur Epithelial Cells (None Seen) /HPF Urine Bacteria (None Seen) /HPF Urine Culture Reflexed (NO) Influenza Type A Ag NEGATIVE (NEGATIVE) Influenza Type B Ag NEGATIVE (NEGATIVE) RSV (PCR) NEGATIVE (NEGATIVE) SARS-CoV-2 (PCR) NEGATIVE (NEGATIVE) 07/23/23 Range/Units 04:17 WBC (4.0-10.5) x10^3/uL RBC (4.1-5.4) x10^6/uL Hgb (12.0-16.0) g/dL Hct (35-47) % MCV (78-100) fL MCH (26-32) pg MCHC (32-36) g/dL RDW (11.5-14.0) % Plt Count (150-450) x10^3/uL MPV (7.5-11.0) fL Gran % (36.0-66.0) % Immature Gran % (Auto) (0.00-0.4) % Nucleat RBC Rel Count (0.00-0.1) % Eos # (Auto) (0-0.5) x10^3/uL Immature Gran # (Auto) (0.00-0.03) x10^3u/L Absolute Lymphs (auto) (1.0-4.6) x10^3/uL Absolute Monos (auto) (0.0-1.3) x10^3/uL Absolute Nucleated RBC (0.00-0.01) x10^3u/L Lymphocytes % (24.0-44.0) % Monocytes % (0.0-12.0) % Eosinophils % (0.00-5.0) % Basophils % (0.0-0.4) % Absolute Granulocytes (1.4-6.9) x10^3/uL Basophils # (0-0.4) x10^3/uL Sodium 141 (137-145) mmol/L Potassium 3.7 (3.5-5.1) mmol/L Chloride 109 H (98-107) mmol/L Carbon Dioxide 24 (22-30) mmol/L Anion Gap 12.5 (5-15) MEQ/L BUN 19 H (7-17) mg/dL Creatinine 0.62 (0.52-1.04) mg/dL Estimated GFR > 60.0 ML/MIN Glucose 93 (74-106) mg/dL Lactic Acid (0.4-2.0) Calcium 8.3 L (8.4-10.2) mg/dL Total Bilirubin 0.80 (0.2-1.3) mg/dL AST 30 (14-36) U/L ALT 22 (0-35) U/L Alkaline Phosphatase 64 (38-126) U/L Troponin I (0.000-0.034) ng/mL Serum Total Protein 5.9 L (6.3-8.2) g/dL Albumin 3.5 (3.5-5.0) g/dL Amylase (30-110) U/L Lipase (23-300) U/L Urine Color (Yellow) Urine Appearance (Clear) Urine pH (4.6-8.0) Ur Specific Douglas (1.005-1.030) Urine Protein (Negative) Urine Glucose (UA) (Negative) mg/dL Urine Ketones (Negative) Urine Blood (Negative) Urine Nitrite (Negative) Urine Bilirubin (Negative) Urine Urobilinogen (0.2) mg/dL Ur Leukocyte Esterase (Negative) U Hyaline Cast (Auto) (0-2) /LPF Urine Microscopic RBC (0-5) /HPF Urine Microscopic WBC (0-5) /HPF Ur Epithelial Cells (None Seen) /HPF Urine Bacteria (None Seen) /HPF Urine Culture Reflexed (NO) Influenza Type A Ag (NEGATIVE) Influenza Type B Ag (NEGATIVE) RSV (PCR) (NEGATIVE) SARS-CoV-2 (PCR) (NEGATIVE) - Radiology Exams Ordered Rad Exams-Entire Visit: Radiology Procedures Category Date Time Status ABDOMEN AND PELVIS W/0 CONTRAS [CT] Stat Exams 07/22/23 13:17 Completed - Procedures and Test Procedures and Tests throughout Hospitalization: Therapy Orders & Screens 07/22/23 21:45 Respiratory Therapy Assessment DAILY Comment: Diagnosis: enteritis Discharge Exam General Appearance: no apparent distress Neurologic Exam: alert, oriented x 3, cooperative Eye Exam: PERRL Ears, Nose, Throat Exam: normal ENT inspection Neck Exam: normal inspection Respiratory Exam: normal breath sounds, lungs clear Cardiovascular Exam: regular rate/rhythm, normal heart sounds Gastrointestinal/Abdomen Exam: soft, normal bowel sounds Pelvic Exam: deferred Back Exam: normal inspection Extremity Exam: normal inspection Skin Exam: normal color Final Diagnosis/Problem List - Final Discharge Diagnosis/Problem (1) Enteritis Current Visit: Yes Status: Acute Code(s): K52.9 - NONINFECTIVE GASTROENTERITIS AND COLITIS, UNSPECIFIED (2) Azotemia Current Visit: Yes Status: Acute Code(s): R79.89 - OTHER SPECIFIED ABNORMAL FINDINGS OF BLOOD CHEMISTRY (3) Leukocytosis Current Visit: Yes Status: Resolved Code(s): D72.829 - ELEVATED WHITE BLOOD CELL COUNT, UNSPECIFIED (4) Asthma Current Visit: Yes Status: Acute Code(s): J45.909 - UNSPECIFIED ASTHMA, UNCOMPLICATED (5) Migraines Current Visit: Yes Status: Acute Code(s): G43.909 - MIGRAINE, UNSP, NOT INTRACTABLE, WITHOUT STATUS MIGRAINOSUS - Discharge Discharge Date: 07/23/23 Disposition: Home, Self-Care Condition: Stable Prescriptions: New Dicyclomine HCl 20 mg [Bentyl 20 mg] 20 mg PO QID PRN 30 Days #30 tablet PRN Reason: cramping PANTOPRAZOLE 40 mg Tablet [Protonix 40MG Tablet] 40 mg PO DAILY 30 Days #30 tab Ondansetron ODT 4 MG [Zofran Odt 4 mg] 4 mg PO Q6HPRN PRN #30 tab PRN Reason: Nausea Continue Sumatriptan Succinate [Imitrex] 100 mg PO UD PRN PRN Reason: Headache Follow up with: JUMANA BONDS NP [Primary Care Provider] - 07/31/23 10:15 am
== END 2023-07-23 11:58 | disposition home or self-care (01) ==
LOC: ED 11:43 → MED SURG 19:44
PROVIDERS: ADMIT Internal Medicine; ATTEND Internal Medicine
DX: K52.9 Noninfective gastroenteritis and colitis, unspecified (principal); D72.829 Elevated white blood cell count, unspecified; R79.89 Other specified abnormal findings of blood chemistry; J45.909 Unspecified asthma, uncomplicated; G43.909 Migraine, unspecified, not intractable, without status migrainosus; Z79.899 Other long term (current) drug therapy; Z20.828 Contact with and (suspected) exposure to other viral communicable diseases
CPT/HCPCS: 0241U; 36415; 74176; 80053; 81001; 82150; 83605; 83690; 84484; 85025; 96360; 96374; 96375; 99285; G0378; Q3014; J1170; J2405; J3010